=== PATIENT | male | born 1995 | race Asian ===

== ENCOUNTER → 2023-08-03 10:36 | Outpatient (REF) | payer BC, SELFPAY | LOC: RCS 10:36 | PROVIDERS: ATTENDING PHYSICIAN Internal Medicine Cardiovascular Disease; FAMILY PHYSICIAN Family Medicine | DX: R00.2 Palpitations (principal) | CPT/HCPCS: 93017 ==

== ENCOUNTER → 2023-08-22 10:53 | Outpatient (REF) | payer BC, SELFPAY | LOC: DHCBS MAIN 10:53 | PROVIDERS: ATTENDING PHYSICIAN Internal Medicine Cardiovascular Disease; FAMILY PHYSICIAN Family Medicine | DX: R00.2 Palpitations (principal) | CPT/HCPCS: 93306 ==